=== PATIENT | male | born 1980 | race Caucasian/White ===

== ENCOUNTER → 2017-06-27 | Outpatient (CLI) | payer BC | END | disposition home or self-care (01) | LOC: GMAJ 10:35 | PROVIDERS: ATTEND Family Medicine | DX: R56.9 Unspecified convulsions (principal); Z79.899 Other long term (current) drug therapy ==

== ENCOUNTER → 2018-05-10 | Outpatient (CLI) | payer BC | LOC: GMAJ 10:45 | PROVIDERS: ATTEND Family Medicine | DX: R56.9 Unspecified convulsions (principal) ==

== ENCOUNTER → 2018-05-15 | Outpatient (CLI) | payer BC ==
--- NOTE | 2018-05-15 16:44 | US ---
EXAM DESCRIPTION: Abdomen,Complete CLINICAL HISTORY: LOW BACK PAIN COMPARISON: None Available. TECHNIQUE: Complete abdominal ultrasound FINDINGS: Visualized portions of the pancreas are unremarkable. No peripancreatic fluid. Bowel gas obscures some areas. Normal caliber of the aorta. Normal appearance of the inferior vena cava. Liver parenchyma is homogeneous in texture with normal echogenicity. No liver mass or intrahepatic bile duct dilatation. No liver surface irregularity. Normal appearance of hepatic veins and portal vein. Gallbladder appears contracted with no intraluminal stones. No gallbladder wall thickening. Common bile duct is normal in caliber measuring 3.8 mm. The right kidney measures 10 cm in length. Normal renal cortical echogenicity. The renal cortical thickness appears normal. No right renal mass, shadowing stone or cyst. There is no hydronephrosis. Spleen is prominent measuring 13 cm in craniocaudal length. No focal splenic lesion. The left kidney measures 10 cm in length. Normal renal cortical echogenicity. The renal cortical thickness appears normal. No left renal mass, shadowing stone or cyst. There is no hydronephrosis. IMPRESSION: Prominent spleen. Otherwise unremarkable upper abdominal sonogram. Electronically signed by: Ryan Ramos MD 05/15/2018 4:43 PM CDT
== END ==
LOC: US 14:01
PROVIDERS: ATTEND Family Medicine
DX: M54.5 Low back pain (principal)

== ENCOUNTER → 2019-06-11 | Outpatient (CLI) | payer BC | END | disposition home or self-care (01) | LOC: GMAJ 10:33 | PROVIDERS: ATTEND Family Medicine | DX: Z79.899 Other long term (current) drug therapy (principal) ==